=== PATIENT | male | born 1965 | race Hispanic/Latino ===

== ENCOUNTER 2022-01-21 07:29 | Day surgery (SDC) | payer BC ==
[2022-01-21] MEDS ORDERED: ASPIRIN EC 325 MG TAB PO NR (08:12)
[2022-01-21 08:29] LABS: INR 0.82 (0.87-1.13)
[2022-01-21 08:30] LABS: Partial Thromboplastin Time 25.8 Sec. (24.2-36.6)
[2022-01-21] MEDS: SODIUM CHLORIDE 0.9% 500 ML 500 ML IV SCH ×2 (08:30→09:38)
[2022-01-21] MEDS ORDERED: HEPARIN/NS 5000 UNIT/500ML 1,000 ML IR ONE (08:36)
[2022-01-21] MEDS ORDERED: VERAPAMIL 5 MG/2 ML INJ ONE (08:37)
[2022-01-21] MEDS ORDERED: fentaNYL 100 MCG/2 ML INJ ONE ×2 (08:37→09:01)
[2022-01-21] MEDS ORDERED: MIDAZOLAM 2 MG/2 ML INJ ONE (08:37)
[2022-01-21] MEDS ORDERED: NITROGLYCERIN SYRINGE 0 ML ONE (08:37)
[2022-01-21] MEDS ORDERED: NITROGLYCERIN SYRINGE 3 ML ONE (09:33)
[2022-01-21] MEDS: LIDOCAINE (2%) 20 MG/1 ML VIAL 20 ML MDV INFILTRATI ONE ×2 (09:35→09:39)
[2022-01-21] MEDS: HEPARIN 10,000 UNITS/10 ML VIAL ONE ×2 (09:36→09:49)
[2022-01-21] MEDS ORDERED: ALUM-MAG HYDROXIDE-SIMETHICONE 200-200-20MG/5ML ORAL LIQD 30 ML ONE (10:03)
[2022-01-21] MEDS ORDERED: TICAGRELOR 90 MG TAB ONE ×2 (10:03→17:12)
--- NOTE | 2022-01-21 10:50 | Cardiac Catherization Report ---
DATE OF SERVICE: 01/21/2022 LEFT HEART CATHETERIZATION/PERCUTANEOUS CORONARY/INTRAVASCULAR ULTRASOUND REPORT CLINICAL INFORMATION: This is a 56-year-old gentleman with history of hypertension, diabetes, cholesterol, known coronary arterial disease, having chest discomfort and unstable fatigue, improvement mildly with Ranexa, here for a left heart cath. Left heart cath performed via the right radial artery, sterile technique, local anesthesia. A 6-Martiniquais radial sheath inserted. Procedure was done with moderate sedation started at 9:35, finished at 10:05, 30 minutes of moderate sedation. PROCEDURAL FINDINGS: Left main is large caliber, patent. LAD is a medium to large caliber vessel. Proximal to mid is patent, mid diagonal 1 that has a mid stent that is patent. Diagonal 2, there is a 40% lesion. The rest of the LAD is patent, no change from 2018. Circumflex proximal, has a 90% lesion, large, dominant vessel. OM1, OM2 are small to medium caliber, patent. OM3 is a medium caliber vessel, patent. Mid distal circumflex stent is patent. LPDA is a small to medium caliber, patent. RCA engaged with JR4 catheter. Mid stent is patent. Nondominant vessel. LV gram done in BULGARIAN and OSMAN view shows normal LV function, EF 55-60%. LVEDP is 17 mmHg, LV is 130. Aortic is 128/64. No gradient across the aortic valve on pullback. So percutaneous/intravascular ultrasound of the circumflex to engage the left system, an EBU 3.5 guiding catheter. 1. Crossed the distal circumflex short Runthrough wire. 2. Intravascular ultrasound showed reference vessel, 4 mm with diffuse mild to moderate calcification with a MLA of less than a 2.5 mm with a 90% plaque burden. 3. Predilated with a 2.75 x 12 mm balloon at 18 atmospheres. 4. Stented proximal circ with a drug-eluting Resolute 4.0 x 15 mm at 15 atmospheres. Excellent angiographic results. Removed coronary wire, multiple angiograms, continued ZULEYMA 3 flow. Reduced stenosis from 90% down to 0. 5. A 6-Martiniquais guiding catheter taken over a guidewire. A 6-Martiniquais radial sheath was discontinued. Radial band applied. No hematoma, no bleeding. SUMMARY: 1. Successful percutaneous coronary intervention of the proximal circumflex with a drug-eluting Resolute 4.0 x 15. Angiography revealed left main is patent. LAD proximal, mid patent; mid to distal has a focal 40%. Diagonal 1 stent patent. Circumflex proximal 90% with distal circumflex stent patent with OM1, OM2, small to medium caliber and patent. OM3 medium caliber vessel, patent. LPDA is small to medium caliber, patent. RCA nondominant vessel, but mid stent patent with normal LV function. 2. The patient will be post-PCI care with Brilinta, aspirin and will hold metformin for 48 hours. Discussed in detail with the patient and the patient's family. TID: [id number] RECEIPT: [id number] ERIKA/JESSICA
[2022-01-21] MEDS ORDERED: HYDROcodone/ACETAMINOPHEN 5-325 MG TAB PO PRN (11:00)
[2022-01-21] MEDS ORDERED: ACETAMINOPHEN 325 MG TAB PO PRN (11:00)
--- NOTE | 2022-01-21 11:10 | Short Stay Summary ---
Short Stay Documentation Date of service: 01/21/22 - History H&P: obtained from office - Allergies and Medications Current Medications: Allergies Sulfa (Sulfonamide Antibiotics) Allergy (Verified 01/21/22 08:09) Hives Home Medications Medication Instructions Recorded Confirmed Last Taken Type Aspirin [Aspirin BABY CHEW TAB] 81 mg PO DAILY 01/21/22 01/21/22 01/20/22 History 81 mg AtorvaSTATin [Lipitor] 40 mg PO QAM 01/21/22 01/21/22 01/20/22 History 40 mg Ramipril 10 mg PO DAILY 01/21/22 01/21/22 01/20/22 History 10 mg Ranolazine [Ranolazine ER] 500 mg PO BID 01/21/22 01/21/22 01/20/22 History 500 mg Sildenafil Citrate 50 mg PO PRN PRN 01/21/22 01/21/22 11/13/21 History 50 mg Ticagrelor [Brilinta] 90 mg PO BID 30 Days #60 tablet 01/21/22 Unknown Rx glyBURIDE/METFORMIN HCL 1 tab PO BID 01/21/22 01/21/22 01/20/22 History [Glyburide-Metformin 5-500 mg] 500 mg Active Medications Acetaminophen (Acetaminophen 325 Mg Tab) 650 mg PO Q4H PRN PRN Reason: Pain MILD(1-3)/Fever >100.5/EBCK Hydrocodone Bitart/Acetaminophen (Hydrocodone/Acetaminophen 5-325 Mg Tab) 1 each PO Q6H PRN PRN Reason: Pain, Moderate (4-6) Sodium Chloride (Nacl 0.9% 500 Ml) 500 mls @ 50 mls/hr IV DIRECT RADHA Stop: 01/21/22 18:59 Last Admin: 01/21/22 09:38 Dose: 50 mls/hr - Physical exam Integumentary: other (Dressing clean dry and intact ) - Brief post op/procedure progress note Date of procedure: 01/21/22 Pre-op diagnosis: Coronary artery disease Post-op diagnosis: same Anesthesia: local Estimated blood loss: minimal - Hospital course Hospital course: Fevers today for cardiac cath. Patient tolerated procedure well. PCI of circumflex with 1 GLEN. Patient to be started on DAPT therapy with aspirin and Brilinta. Patient meets criteria for same-day discharge. Patient developed a small hematoma which was expressed. Patient remained hemodynamically stable, with pulses, and cap refill intact. Patient will be discharged home and follow- up in the office. Patient and instructed to hold metformin for 48 hours following procedure. - Disposition Condition at discharge: Good Disposition: 01 HOME / SELF CARE / HOMELESS - Discharge Diagnoses (1) Coronary artery disease Status: Acute (2) Diabetes Status: Acute (3) Hypertension Status: Acute (4) Hyperlipidemia Status: Acute Short Stay Discharge Plan Activity: advance as tolerated Diet: low fat, low cholesterol, low salt Wound: keep clean and dry, per your surgeon's advice Follow up with: PRIMARY CAREMD [Primary Care Provider] - 7 Days KAY DHILLON MD [Staff Physician] - 02/15/22 2:15 pm Prescriptions: Ticagrelor [Brilinta] 90 mg PO BID 30 Days #60 tablet
--- NOTE | 2022-01-21 13:06 | Electrocardiograph Report ---
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
--- NOTE | 2022-01-21 13:07 | Electrocardiograph Report ---
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
[2022-01-21 17:16] VITALS: BP 137/83
== END 2022-01-21 18:15 | disposition home or self-care (01) ==
LOC: CATHLABREC 07:29
PROVIDERS: ATTEND Internal Medicine
DX: I25.10 Atherosclerotic heart disease of native coronary artery without angina pectoris (principal); E11.9 Type 2 diabetes mellitus without complications; I10 Essential (primary) hypertension; E78.5 Hyperlipidemia, unspecified; G47.30 Sleep apnea, unspecified; K21.9 Gastro-esophageal reflux disease without esophagitis; Z88.2 Allergy status to sulfonamides; Z79.899 Other long term (current) drug therapy; Z79.82 Long term (current) use of aspirin; Z95.5 Presence of coronary angioplasty implant and graft; Z98.890 Other specified postprocedural states; Z83.3 Family history of diabetes mellitus; Z82.3 Family history of stroke; Z82.49 Family history of ischemic heart disease and other diseases of the circulatory system
CPT/HCPCS: 36415; 85347; 85610; 85730; 92978; 93005; 93458; 99156; 99157; C1725; C1753; C1769; C1874; C1887; C1894; C9600; J1644; J1815; J2250; J3010; J3490; J7040; 92928; Q9967